=== PATIENT | male | born 1945 | race African-American/Black ===

== ENCOUNTER 2017-07-31 08:25 | Outpatient (CLI) | payer MEDICARE ==
[2017-07-31 08:55] LABS: Blood Urea Nitrogen 19 mg/dL (9-20)
--- NOTE | 2017-07-31 15:07 | Cat Scan Report ---
CT CHEST WITH CONTRAST: HISTORY: Cough, elevated white blood cell count, elevated PSA level. COMPARISON: none. TECHNIQUE: Helical CT in 1.25mm intervals following IV contrast. Sagittal and coronal reformatted images. FINDINGS: Thyroid gland: Normal. Tracheobronchial tree: Normal. Esophagus: Normal. Heart: Borderline to mild cardiomegaly. Pericardium: Normal. Mediastinum: The ascending aorta is mildly dilated up to 4.3 cm. The descending thoracic aorta measures 2.7 cm at the same level. The aortic arch measures 3.3 cm. No dissection or extravasation. No mediastinal mass, adenopathy or inflammation is appreciated. Lung [place]: Normal. Pleural Spaces: Normal. Musculoskeletal: Intact. No suspicious bony lesion or fracture is identified. IMPRESSION: No acute process in the chest. Mild dilatation of the ascending aorta measuring 4.3 cm in diameter.
--- NOTE | 2017-07-31 15:19 | Cat Scan Report ---
CT ABDOMEN PELVIS WITH CONTRAST: HISTORY: Cough, elevated white blood cell count, elevated PSA. COMPARISON: none. TECHNIQUE: Helical CT in 1.25mm intervals following IV contrast. Sagittal and coronal reconstructions. FINDINGS: Liver: Normal. Biliary system: Normal. Pancreas: Normal. Spleen: Normal. Kidneys/ureters/bladder: Normal. Adrenal glands: Normal. Aorta: Mild diffuse calcifications. No aneurysm, stenosis or dissection. Intestines: No evidence for obstruction, mass or focal inflammation. There is air relatively small left inguinal hernia containing a short segment of the sigmoid colon. No evidence for obstruction or focal inflammation in the hernia sac. Appendix: Normal. Pelvic viscera: The prostate gland is mildly enlarged measuring 5.4 cm in diameter. Ascites: None. Adenopathy: No pathologic or suspicious lymphadenopathy is identified. Musculoskeletal: Mild thoracolumbar spondylosis is identified. No fracture or suspicious bony lesions detected. IMPRESSION: No acute process is identified in the abdomen or pelvis. Small left inguinal hernia containing a short segment of sigmoid colon. No evidence for obstruction. Mildly enlarged prostate gland. No clear source for fever of unknown origin.
== END 2017-07-31 08:26 | disposition home or self-care (01) ==
LOC: CT 08:25
DX: K40.90 Unilateral inguinal hernia, without obstruction or gangrene, not specified as recurrent (principal); D72.829 Elevated white blood cell count, unspecified; N40.0 Benign prostatic hyperplasia without lower urinary tract symptoms; R97.20 Elevated prostate specific antigen [PSA]; M47.895 Other spondylosis, thoracolumbar region; I70.0 Atherosclerosis of aorta; R05 Cough; I77.819 Aortic ectasia, unspecified site; I10 Essential (primary) hypertension; E11.9 Type 2 diabetes mellitus without complications
CPT/HCPCS: 36415; 71260; 74177; 82565; 84520; Q9967